=== PATIENT | female | born 1970 | race Caucasian/White ===

== ENCOUNTER 2018-12-24 15:34 | Emergency (ER) | payer MEDICAID ==
[~2018-12-24] VITALS: Ht 165.1 cm; Wt 122.5 kg
[2018-12-24 20:57] VITALS: BP 129/81
== END 2018-12-24 20:59 | disposition home or self-care (01) ==
LOC: ER 15:34
DX: B37.3 Candidiasis of vulva and vagina (principal); E11.65 Type 2 diabetes mellitus with hyperglycemia; M79.602 Pain in left arm; R22.0 Localized swelling, mass and lump, head; F17.200 Nicotine dependence, unspecified, uncomplicated; Z98.890 Other specified postprocedural states; Z90.49 Acquired absence of other specified parts of digestive tract; Y08.89XA Assault by other specified means, initial encounter; Y93.89 Activity, other specified; Y92.89 Other specified places as the place of occurrence of the external cause; Y99.8 Other external cause status
CPT/HCPCS: 82962; 99283

== ENCOUNTER 2018-12-30 15:37 | Emergency (ER) | payer MEDICAID ==
[~2018-12-30] VITALS: Ht 167.6 cm; Wt 118.0 kg
[2018-12-30] MEDS ORDERED: METOCLOPRAMIDE HCL 10MG TABLET PO ONE (18:45)
[2018-12-30] MEDS ORDERED: ACETAMINOPHEN 325MG TABLET PO ONE (18:45)
[2018-12-30] MEDS ORDERED: DIPHENHYDRAMINE 25MG CAPSULE PO ONE (18:45)
[2018-12-30 22:15] VITALS: BP 147/76
== END 2018-12-30 22:15 | disposition home or self-care (01) ==
LOC: ER 15:37
DX: R51 Headache (principal); Y08.89XA Assault by other specified means, initial encounter; Y93.89 Activity, other specified; Y92.89 Other specified places as the place of occurrence of the external cause; Y99.8 Other external cause status
CPT/HCPCS: 81025; 99284; J8597; Q0163